=== PATIENT | female | born 1985 | race Caucasian/White ===

== ENCOUNTER 2017-06-20 12:34 | Emergency (ER) | payer BC, OTHER ==
--- NOTE | 2017-06-20 13:01 | EDM.PDOC ---
ED HPI GENERAL MEDICAL PROBLEM - General Chief Complaint: ENT Problem Stated Complaint: SORE THROAT Time Seen by Provider: 06/20/17 12:59 Source of Information: Reports: Patient History Limitations: Reports: No Limitations - History of Present Illness INITIAL COMMENTS - FREE TEXT/NARRATIVE: HISTORY AND PHYSICAL: []31-year-old female presenting with sore throat 3 days History of Present Illness: []Patient states that she has this twice a year every year takes medication and it goes away As anaphylactic type reaction to amoxicillin Review of Systems: As per history of present illness and below otherwise all systems reviewed and negative. Past medical history: As per history of present illness and as reviewed below otherwise noncontributory. Surgical history: As per history of present illness and as reviewed below otherwise noncontributory. Social history: No reported history of drug or alcohol abuse. Family history: As per history of present illness and as reviewed below otherwise noncontributory. Physical exam: Alert and oriented female answering questions appropriately speaking with a hot potato voice speaking full sentences without shortness of breath. HEENT: Atraumatic, normocehpalic, pupils reactive, negative for conjunctival pallor or scleral icterus, mucous membranes moist, throat clear, neck supple, nontender, trachea midline. Tonsillar area is cryptic. There is white exudate to enlarged 2+ tonsils they are not kissing. cervical adenopathy is easily palpable. Lungs: Clear to auscultation, breath sounds equal bilaterally, chest non tender. Heart: S1S2, regular, negative for clicks, rubs, or JVD. Abdomen: Soft, nondistended, nontender. Negative for masses or hepatossplenmegaly. Negative for costovertebral tenderness. Pelvis: Stable nontender. Genitourinary: Deferred. Rectal: Deferred Extremities: Atraumatic, negative for cords or calf pain. Neurovascular unremarkable. Neuro: Awake, alert, oriented. Cranial nerves II through XII unremarkable. Cerebellum unremarkable. Motor and sensory unremarkable throughout. Exam nonfocal. Diagnostics: [] Therapeutics: []Prednisolone syrup by mouth Impression: [Acute exudative tonsillitis] Plan: []Discharge home Zithromax Prednisolone syrup Follow-up with your primary care Return to the emergency room as directed and discussed Definitive disposition and diagnosis as appropriate pending reevaluation and review of above. Throat Pain Score (Numeric/FACES): 10 - Related Data Allergies Allergy/AdvReac Type Severity Reaction Status Date / Time amoxicillin [Amoxicillin] Allergy Respiratory Verified 06/20/17 12:55 Distress Home Meds: Home Meds Azithromycin [Zithromax] 500 mg PO DAILY #6 tab 06/20/17 [Rx] Prednisolone [IJD: Prelone 15 MG/5 ML] 30 mg PO BID #120 ml 06/20/17 [Rx] Past Medical History - Past Health History Medical/Surgical History: Denies Medical/Surgical History Social & Family History - Family History Family Medical History: Noncontributory - Tobacco Use Smoking Status *Q: Never Smoker - Caffeine Use Caffeine Use: Reports: Soda - Alcohol Use Days Per Week of Alcohol Use: 0 - Recreational Drug Use Recreational Drug Use: No ED ROS ENT - Review of Systems Review Of Systems: ROS reveals no pertinent complaints other than HPI. ED EXAM, ENT - Physical Exam Exam: See Below (See dictation) Course - Vital Signs Last Recorded V/S: Last Vital Signs Temp 36.2 C 06/20/17 12:52 Pulse 103 H 06/20/17 12:52 Resp 18 06/20/17 12:52 BP 127/74 06/20/17 12:52 Pulse Ox 98 06/20/17 12:52 - Orders/Labs/Meds Orders: Active Orders 24 hr Category Date Time Status prednisoLONE [OraPred 15 MG/5ML Soln] Med 06/20/17 13:27 Once 30 mg PO ONETIME ONE Departure - Departure Time of Disposition: 13:30 Disposition: Home, Self-Care 01 Condition: Good Clinical Impression: Tonsillitis - Discharge Information Prescriptions: Azithromycin [Zithromax] 500 mg PO DAILY #6 tab Prednisolone [IJD: Prelone 15 MG/5 ML] 30 mg PO BID #120 ml Instructions: Tonsillitis, [id number] Referrals: PCP,None [Primary Care Provider] - Forms: ED Department Discharge Additional Instructions: The following information is given to patients seen in the emergency department who are being discharged to home. This information is to outline your options for follow-up care. We provide all patients seen in our emergency department with a follow-up referral. The need for follow-up, as well as the timing and circumstances, are variable depending upon the specifics of your emergency department visit. If you don't have a primary care physician on staff, we will provide you with a referral. We always advise you to contact your personal physician following an emergency department visit to inform them of the circumstance of the visit and for follow-up with them and/or the need for any referrals to a consulting specialist. The emergency department will also refer you to a specialist when appropriate. This referral assures that you have the opportunity for followup care with a specialist. All of these measure are taken in an effort to provide you with optimal care, which includes your followup. Under all circumstances we always encourage you to contact your private physician who remains a resource for coordinating your care. When calling for followup care, please make the office aware that this follow-up is from your recent emergency room visit. If for any reason you are refused follow-up, please contact the [facility] emergency department at and asked to speak to the emergency department charge nurse. You have acute exudative tonsillitis Zithromax for antibiotic Prednisolone syrup to reduce the swelling Follow-up with your primary care provider Any worsening of symptoms or concerns return to the emergency room as discussed and directed - My Orders Last 24 Hours: My Active Orders 06/20/17 13:27 prednisoLONE [OraPred 15 MG/5ML Soln] 30 mg PO ONETIME ONE - Assessment/Plan Last 24 Hours: My Active Orders 06/20/17 13:27 prednisoLONE [OraPred 15 MG/5ML Soln] 30 mg PO ONETIME ONE
[2017-06-20] MEDS ORDERED: prednisoLONE Soln 15 MG/5 ML UD Cup PO ONE (13:27)
== END 2017-06-20 13:53 | disposition home or self-care (01) ==
LOC: MW.ED 12:34
DX: J03.90 Acute tonsillitis, unspecified (principal); Z88.1 Allergy status to other antibiotic agents
CPT/HCPCS: 99282; A9270

== ENCOUNTER 2017-09-10 14:27 | Emergency (ER) | payer BC ==
--- NOTE | 2017-09-10 15:55 | EDM.PDOC ---
ED HPI GENERAL MEDICAL PROBLEM - General Chief Complaint: Lower Extremity Injury/Pain Stated Complaint: HURT RT ANKLE Time Seen by Provider: 09/10/17 15:00 Source of Information: Reports: Patient History Limitations: Reports: No Limitations - History of Present Illness INITIAL COMMENTS - FREE TEXT/NARRATIVE: History of present illness: [Patient rolled her ankle 5 days ago swelling and pain has not subsided but worsened. Patient works at [employer] has been going to work date was unable due to worsening pain. Review of systems: As per history of present illness and below otherwise all systems reviewed and negative. Past medical history: As per history of present illness and as reviewed below otherwise noncontributory. Surgical history: As per history of present illness and as reviewed below otherwise noncontributory. Social history: No reported history of drug or alcohol abuse. Family history: As per history of present illness and as reviewed below otherwise noncontributory. Physical exam: General: Well developed, well nourished in NAD HEENT: Atraumatic, normocephalic, pupils reactive, negative for conjunctival pallor or scleral icterus, mucous membranes moist, throat clear, neck supple, nontender, trachea midline. Lungs: Clear to auscultation, breath sounds equal bilaterally, chest nontender. Heart: S1S2, regular, negative for clicks, rubs, or JVD. Abdomen: Soft, nondistended, nontender. Negative for masses or hepatosplenomegaly. Negative for costovertebral tenderness. Pelvis: Stable nontender. Genitourinary: Deferred. Rectal: Deferred. Extremities: Mild swelling and moderate tenderness over lateral malleolus, distal pulses palpable negative for cords or calf pain. Neurovascular unremarkable. Neuro: Awake, alert, oriented. Cranial nerves II through XII unremarkable. Cerebellum unremarkable. Motor and sensory unremarkable throughout. Exam nonfocal. Diagnostics: []X-ray right ankle negative for fracture Therapeutics: []Air splint, patient declined pain meds Impression: []Ankle sprain Plan: []Ibuprofen, ice, elevation and for support, follow-up with regular physician as needed. Definitive disposition and diagnosis as appropriate pending reevaluation and review of above. Right Ankle Pain Score (Numeric/FACES): 4 - Related Data Allergies Allergy/AdvReac Type Severity Reaction Status Date / Time amoxicillin [Amoxicillin] Allergy Respiratory Verified 09/10/17 14:58 Distress Home Meds: Home Meds . [No Known Home Meds] 09/10/17 [History] Past Medical History - Past Health History Medical/Surgical History: Denies Medical/Surgical History Social & Family History - Family History Family Medical History: Noncontributory - Tobacco Use Smoking Status *Q: Never Smoker - Caffeine Use Caffeine Use: Reports: Soda - Recreational Drug Use Recreational Drug Use: No Review of Systems - Review of Systems Review Of Systems: See Below (The history of present illness) ED EXAM, GENERAL - Physical Exam Exam: See Below (The history of present illness) Course - Vital Signs Last Recorded V/S: Last Vital Signs Temp 97.5 F 09/10/17 14:55 Pulse 93 09/10/17 14:55 Resp 18 09/10/17 14:55 BP 135/68 09/10/17 14:55 Pulse Ox 99 09/10/17 14:55 - Orders/Labs/Meds Orders: Active Orders 24 hr Category Date Time Status Splinting [RC] ASDIRECTED Care 09/10/17 16:11 Active Ankle Min 3V Rt [CR] Stat Exams 09/10/17 15:13 Taken Departure - Departure Time of Disposition: 15:54 Disposition: Home, Self-Care 01 Condition: Good Clinical Impression: Right ankle sprain Qualifiers: Encounter type: initial encounter Involved ligament of ankle: unspecified ligament Qualified Code(s): S93.401A - Sprain of unspecified ligament of right ankle, initial encounter - Discharge Information Instructions: Ankle Sprain, [id number] Referrals: PCP,None [Primary Care Provider] - Forms: ED Department Discharge Additional Instructions: The following information is given to patients seen in the emergency department who are being discharged to home. This information is to outline your options for follow-up care. We provide all patients seen in our emergency department with a follow-up referral. The need for follow-up, as well as the timing and circumstances, are variable depending upon the specifics of your emergency department visit. If you don't have a primary care physician on staff, we will provide you with a referral. We always advise you to contact your personal physician following an emergency department visit to inform them of the circumstance of the visit and for follow-up with them and/or the need for any referrals to a consulting specialist. The emergency department will also refer you to a specialist when appropriate. This referral assures that you have the opportunity for follow-up care with a specialist. All of these measure are taken in an effort to provide you with optimal care, which includes your follow-up. Under all circumstances we always encourage you to contact your private physician who remains a resource for coordinating your care. When calling for follow-up care, please make the office aware that this follow-up is from your recent emergency room visit. If for any reason you are refused follow-up, please contact the [facility] Emergency Department at and asked to speak to the emergency department charge nurse. [facility] [address] [place] [address] - My Orders Last 24 Hours: My Active Orders 09/10/17 15:13 Ankle Min 3V Rt [CR] Stat 09/10/17 16:11 Splinting [RC] ASDIRECTED - Assessment/Plan Last 24 Hours: My Active Orders 09/10/17 15:13 Ankle Min 3V Rt [CR] Stat 09/10/17 16:11 Splinting [RC] ASDIRECTED
--- NOTE | 2017-09-12 15:48 | CR ---
EXAM DATE: 09/10/17 PATIENT'S AGE: 31 Patient: ADAN TOBAR Facility: [place], [place] Site . Site : 1985 Study: XRay Extremity Right ankle [id number]/14/2018 3:44:46 PM Ordering Physician: Lester Shah Final Report: INDICATION: Injury 1 week ago. TECHNIQUE: Three portable views of the right ankle. FINDINGS: No acute or healing fracture. The mortise is uniform. No osteochondral lesion. Soft tissue swelling about the ankle. IMPRESSION: 1. No bony abnormality. 2. Soft tissue swelling. Dictated by Noy Carter MD @ Sep 10 2017 4:05PM (Electronic Signature) Report Signed by Proxy. RADHA
== END 2017-09-10 16:13 | disposition home or self-care (01) ==
LOC: MW.ED 14:27
DX: S93.401A Sprain of unspecified ligament of right ankle, initial encounter (principal); Z88.1 Allergy status to other antibiotic agents; X58.XXXA Exposure to other specified factors, initial encounter
CPT/HCPCS: 73610-26-RT; 73610-RT; 99283

== ENCOUNTER 2019-02-28 19:57 | Emergency (ER) | payer BC ==
--- NOTE | 2019-02-28 20:41 | EDM.PDOC ---
ED HPI GENERAL MEDICAL PROBLEM - General Chief Complaint: ENT Problem Stated Complaint: SORE THREAT Time Seen by Provider: 02/28/19 20:41 Source of Information: Reports: Patient History Limitations: Reports: No Limitations - History of Present Illness INITIAL COMMENTS - FREE TEXT/NARRATIVE: HISTORY AND PHYSICAL: History of present illness: Patient is a 33-year-old female presents to the ED with complaint of sore throat. She states she has history of strep throat twice a year. She states she has had nasal congestion and sinus pressure for the past 7 days. She states since yesterday she has been having sore throat. She denies fevers, chills, nausea, vomiting, diarrrhea, abdominal pain, cough, chest pain, shortness of breath. Review of systems: As per history of present illness and below otherwise all systems reviewed and negative. Past medical history: As per history of present illness and as reviewed below otherwise noncontributory. Surgical history: As per history of present illness and as reviewed below otherwise noncontributory. Social history: No reported history of drug or alcohol abuse. Family history: As per history of present illness and as reviewed below otherwise noncontributory. Physical exam: General: Patient sitting comfortably in no acute distress and nontoxic appearing HEENT: Tonsils are 2+ and erythematous without exudate. Sinus drainage noted in OP. Bilateral maxillary sinus tenderness to palpation. Atraumatic, normocephalic, pupils reactive, negative for conjunctival pallor or scleral icterus, mucous membranes moist, throat clear, neck supple, nontender, trachea midline. No meningeal signs. Lungs: Clear to auscultation, breath sounds equal bilaterally, chest nontender. Heart: S1S2, regular, negative for clicks, rubs, or overt murmur. Abdomen: Soft, nondistended, nontender. Negative for masses or hepatosplenomegaly. Negative for costovertebral tenderness. No rigidity, rebound , guarding. Pelvis: Stable nontender. Genitourinary: Deferred. Rectal: Deferred. Extremities: Atraumatic, negative for cords or calf pain. Neurovascular unremarkable. Neuro: Awake, alert, oriented. Cranial nerves II through XII unremarkable. Cerebellum unremarkable. Motor and sensory unremarkable throughout. Exam nonfocal. Notes: Diagnostics: rapid strep Therapeutics: none Prescriptions: Doxycycline Impression: Acute sinusitis, acute pharyngitis Plan: Take antibiotic as instructed Follow up with primary care provider Return to ED as needed as discussed Definitive disposition and diagnosis as appropriate pending reevaluation and review of above. Throat Pain Score (Numeric/FACES): 7 - Related Data Allergies Allergy/AdvReac Type Severity Reaction Status Date / Time amoxicillin [Amoxicillin] Allergy Respiratory Verified 02/28/19 20:10 Distress Home Meds: Home Meds Doxycycline [Vibramycin] 100 mg PO BID 7 Days #14 cap 02/28/19 [Rx] Past Medical History - Past Health History Medical/Surgical History: Denies Medical/Surgical History - Infectious Disease History Infectious Disease History: Reports: None Social & Family History - Family History Family Medical History: Noncontributory - Tobacco Use Smoking Status *Q: Never Smoker - Caffeine Use Caffeine Use: Reports: Energy Drinks - Recreational Drug Use Recreational Drug Use: No ED ROS ENT - Review of Systems Review Of Systems: Comprehensive ROS is negative, except as noted in HPI. ED EXAM, ENT - Physical Exam Exam: See Below (see dictation) Course - Vital Signs Last Recorded V/S: Last Vital Signs Temp 97.8 F 02/28/19 20:59 Pulse 93 02/28/19 20:59 Resp 20 02/28/19 20:59 BP 173/80 H 02/28/19 20:59 Pulse Ox 98 02/28/19 20:59 Departure - Departure Time of Disposition: 20:46 Disposition: Home, Self-Care 01 Condition: Good Clinical Impression: Acute sinusitis - Discharge Information Prescriptions: Doxycycline [Vibramycin] 100 mg PO BID 7 Days #14 cap Instructions: Sinusitis, Adult, [id number] Referrals: PCP,None [Primary Care Provider] - Forms: ED Department Discharge Additional Instructions: The following information is given to patients seen in the emergency department who are being discharged to home. This information is to outline your options for follow-up care. We provide all patients seen in our emergency department with a follow-up referral. The need for follow-up, as well as the timing and circumstances, are variable depending upon the specifics of your emergency department visit. If you don't have a primary care physician on staff, we will provide you with a referral. We always advise you to contact your personal physician following an emergency department visit to inform them of the circumstance of the visit and for follow-up with them and/or the need for any referrals to a consulting specialist. The emergency department will also refer you to a specialist when appropriate. This referral assures that you have the opportunity for follow-up care with a specialist. All of these measure are taken in an effort to provide you with optimal care, which includes your follow-up. Under all circumstances we always encourage you to contact your private physician who remains a resource for coordinating your care. When calling for follow-up care, please make the office aware that this follow-up is from your recent emergency room visit. If for any reason you are refused follow-up, please contact the [facility] Emergency Department at and asked to speak to the emergency department charge nurse. [facility] [address] [place] [id number] [address] Take antibiotic as instructed Alternate tylenol and motrin as needed Follow up with primary care provider Return to ED as needed as discussed Sepsis Event Note - Evaluation Sepsis Screening Result: No Definite Risk - Focused Exam Date Exam was Performed: 03/05/19 Time Exam was Performed: 11:37
== END 2019-02-28 20:59 | disposition home or self-care (01) ==
LOC: MW.ED 19:57
DX: J01.90 Acute sinusitis, unspecified (principal); J02.9 Acute pharyngitis, unspecified; Z88.1 Allergy status to other antibiotic agents
CPT/HCPCS: 87081; 87880-QW; 99283